=== PATIENT | female | born 1995 | race African-American/Black ===

== ENCOUNTER 2018-12-02 21:22 | Emergency (ER) | payer OTHER ==
[~2018-12-02] VITALS: Ht 167.6 cm; Wt 68.0 kg
[~2018-12-02 21:22] MED LIST: CLEOCIN HCL300 MG PO
[2018-12-02 22:29] LABS: ABSOLUTE NEUTROPHILS 4.7 thou/uL (1.4-8.2); BASOPHILS 0.5 % (0.0-2.0); HEMATOCRIT 34.4 % (37.0-47.0); HEMOGLOBIN 11.7 gm/dL (12.0-15.0); LYMPHOCYTES 12.1 % (24.0-44.0); MCH 27.3 pg (26.0-34.0); MCV 80.3 fL (80.0-100.0); MONOCYTES 3.8 % (1.0-8.0); PLATELET COUNT 294 thou/uL (150-400); POLYS 83.6 % (36.0-66.0); RBC 4.29 mil/uL (4.20-5.00); RDW 17.9 % (10.5-14.5); WBC 5.7 thou/uL (4.0-11.0)
[2018-12-02 22:39] LABS: CALCIUM 9.5 mg/dL (8.5-10.1); CREATININE 0.7 mg/dL (0.6-1.0); POTASSIUM 3.3 mmol/L (3.5-5.1)
[2018-12-03 00:58] VITALS: BP 117/68
== END 2018-12-03 02:14 | disposition left against medical advice (07) ==
LOC: ER 21:22
PROVIDERS: Emergency Medicine
DX: O20.8 Other hemorrhage in early pregnancy (principal); O26.899 Other specified pregnancy related conditions, unspecified trimester; Z3A.00 Weeks of gestation of pregnancy not specified; R11.2 Nausea with vomiting, unspecified